=== PATIENT | female | born 1950 | race Caucasian/White ===

== ENCOUNTER → 2019-07-02 | Outpatient (CLI) | payer OTHER | END | disposition home or self-care (01) | LOC: CFH 13:44 | PROVIDERS: ATTEND Family Medicine | DX: Z12.31 Encounter for screening mammogram for malignant neoplasm of breast (principal); N64.89 Other specified disorders of breast; M85.88 Other specified disorders of bone density and structure, other site | CPT/HCPCS: 77080; 77067 ==